=== PATIENT | male | born 1945 | race Caucasian/White ===

== ENCOUNTER 2019-12-05 12:12 | Emergency (ER) | payer OTHER ==
[~2019-12-05] VITALS: Ht 175.3 cm; Wt 68.0 kg
[2019-12-05 12:16] VITALS: BP 177/94
--- NOTE | 2019-12-05 12:26 | NUR ---
74 Y/O MALE BIBA BLS C/O RT HIP PAIN S/P FALL LAST NIGHT. PT STATES GROUND LEVEL FALL, FELL WHEN TRYING TO GET UP. DENIES LOC/HEAD INJURY. UNABLE TO AMBULATE/MOVE RT LOWER EXTREMITY DUE TO PAIN. 10/10 SHARP PAIN STARTING AT RT HIP RADIATING DOWN RT LEG TOWARD FOOT. CAP REFILL <2 SEC PT LAYING IN BED POSITIONED FOR COMFORT. X 2 SIDE RAILS RAISED. BED LOCKED AND IN LOW POSITION. VSS, AT BEDSIDE
--- NOTE | 2019-12-05 12:48 | NUR ---
DR IRIZARRY AT BEDSIDE EXAMINING PT
--- NOTE | 2019-12-05 12:59 | NUR ---
PT GIVEN URINAL FOR URINE COLLECTION.
--- NOTE | 2019-12-05 13:05 | NUR ---
PT TO CT VIA [facility]
--- NOTE | 2019-12-05 13:24 | NUR ---
RETURN FROM CT.
[2019-12-05 13:44] LABS: APPEARANCE,URINE SL CLOUDY (CLEAR); BILIRUBIN,URINE NEGATIVE (NEGATIVE); BLOOD, URINE TRACE-I (NEGATIVE); COLOR,URINE AMBER (YELLOW); LEUKOCYTE ESTERASE ,URINE TRACE (NEGATIVE); NITRITE, URINE NEGATIVE (NEGATIVE); PH,URINE 5.5 (5.0-9.0); UGLUCOSE NEGATIVE (NEGATIVE)
[2019-12-05 13:45] LABS: BASOPHILS # (AUTO) 0.1 K/uL (0.00-0.22); BASOPHILS % (AUTO) 0.9 % (0.0-2.0); HEMATOCRIT 44.1 % (36-52); HEMOGLOBIN 14.6 g/dL (12.0-18.0); LYMPHOCYTES # (AUTO) 1.1 K/uL (2.0-11.5); LYMPHOCYTES % (AUTO) 8.4 % (20.5-51.1); MEAN CORPUSCULAR HEMOGLOBIN 33 pg (27-31); MEAN CORPUSCULAR HGB CONC 33 g/dL (33-37); MEAN CORPUSCULAR VOLUME 100.6 fL (80-94); MONOCYTES # (AUTO) 0.9 K/uL (0.8-1.0); MONOCYTES % (AUTO) 6.7 % (1.7-9.3); PLATELET COUNT (AUTO) 340 K/uL (140-450); RED BLOOD CELL COUNT(AUTO) 4.38 MIL/uL (4.20-6.10); RED CELL DISTRIBUTION WIDTH 14.4 % (11.6-13.7); WHITE BLOOD COUNT (AUTO) 13.1 K/uL (4.8-10.8)
[2019-12-05 14:03] LABS: PROTHROMBIN TIME 9.9 secs (10.8-13.4)
[2019-12-05 14:07] LABS: HYALINE CASTS, URINE 0-10 /LPF (None Seen); RBC,URINE 0-5 /HPF (0-5); WBC,URINE 0-5 /HPF (0-5)
[2019-12-05 14:27] LABS: ALBUMIN 3.7 g/dL (3.4-5.0); ANION GAP 18.7 (8-16); ASPARTATE AMINOTRANSFERASE 38 U/L (15-37); CARBON DIOXIDE 25.2 mmol/L (21-32); CHLORIDE 107 mmol/L (98-107); CREATININE 0.7 mg/dL (0.6-1.3); GLUCOSE 111 mg/dL (74-106); POTASSIUM 3.9 mmol/L (3.5-5.1); SODIUM SERUM 147 mmol/L (136-145); TOTAL BILIRUBIN 0.7 mg/dL (0.0-1.0); UREA NITROGEN, BLOOD 24 mg/dL (7-18)
--- NOTE | 2019-12-05 14:35 | NUR ---
LAYING IN BED POSITIONED FOR COMFORT. RR EVEN AND UNLABORED. AT BEDSIDE. WILL CONTINUE TO MONITOR
[2019-12-05] MEDS ORDERED: LEVE750T25 PO (15:12)
[2019-12-05] MEDS ORDERED: MEMA10TA56 PO (15:12)
[2019-12-05] MEDS ORDERED: ALBU0.0912 IH (15:12)
[2019-12-05] MEDS ORDERED: METF500T2 PO (15:12)
[2019-12-05] MEDS ORDERED: LISI-420 PO (15:12)
[2019-12-05] MEDS ORDERED: MONT10TA35 PO (15:12)
[2019-12-05] MEDS ORDERED: TAMS0.4C96 PO (15:12)
[2019-12-05] MEDS ORDERED: DONE10TA10 PO (15:12)
[2019-12-05] MEDS ORDERED: ATOR40TA PO (15:12)
[2019-12-05] MEDS ORDERED: MORPHINE SULFATE 4 MG/ML SYR ONE (15:20)
[2019-12-05] MEDS ORDERED: ONDANSETRON 4 MG/2 ML VIAL ONE (15:21)
--- NOTE | 2019-12-05 15:37 | NUR ---
pain 8/10-IVP pain meds given-nadr at this time. post pain meds pain now at a 2/10.
[2019-12-05] MEDS ORDERED: MORPHINE SULFATE 4 MG/ML SYR IVP ONE ×2 (15:40→19:40)
[2019-12-05] MEDS ORDERED: ONDANSETRON 4 MG/2 ML VIAL IVP ONE (15:40)
--- NOTE | 2019-12-05 16:49 | NUR ---
LAYING IN BED WITH EYES CLOSED, VISIBLE RISE AND FALL OF THE CHEST. WILL CONTINUE TO MONITOR.
--- NOTE | 2019-12-05 18:45 | NUR ---
LAYING FLAT ON BACK, EYE OPEN, RR EVEN AND UNLABORED. STATES MILD PAIN, BUT TOLERABLE. VSS. WILL CONTINUE TO MONITOR
--- NOTE | 2019-12-05 19:05 | NUR ---
REPORT GIVEN TO KWABENA CODY. TRANSFER OF CARE AT THIS TIME.
--- NOTE | 2019-12-05 19:08 | NUR ---
received report from ramesh fischer. will cont. care at this time.
--- NOTE | 2019-12-05 19:15 | NUR ---
EAN () CONTACT INFO: HOME: [phone] AND CELL: [phone]
--- NOTE | 2019-12-05 20:23 | NUR ---
pmh: asthma, htn, sz, hyperlipidemia, cva x2
--- NOTE | 2019-12-05 20:44 | NUR ---
still waiting on [facility] for a bed to be available and to give report to the nurse. will follow up with shmuel about pt status on room avalability.
--- NOTE | 2019-12-05 21:43 | NUR ---
called [facility] and gave report to ramesh juarez. pt will go to bed [id number] tele.
--- NOTE | 2019-12-05 22:01 | NUR ---
transporation arrived to transfer pt to [facility].
--- NOTE | 2019-12-05 22:02 | NUR ---
Patient to be transferred to [facility]. Is being transferred due to higher level of care. Receiving facility has accepting physician and available space. ER physician has signed transfer form. Patient or responsible green party has agreed to transfer and signed form. Patient belongings inventoried and will be sent with patient. Copy of nursing notes, lab reports, EKG, Physicians Orders and X-rays to be sent with patient. Report called to ramesh juarez at receiving facility. [facility] has been called for transfer. ETA is 30min.
[2019-12-05 22:03] VITALS: BP 175/80
== END 2019-12-05 22:03 | disposition short-term general hospital (02) ==
LOC: MED 12:12
DX: S72.091A Other fracture of head and neck of right femur, initial encounter for closed fracture (principal); R55 Syncope and collapse; I10 Essential (primary) hypertension; E78.5 Hyperlipidemia, unspecified; Z86.73 Personal history of transient ischemic attack (TIA), and cerebral infarction without residual deficits; Z79.899 Other long term (current) drug therapy; W01.0XXA Fall on same level from slipping, tripping and stumbling without subsequent striking against object, initial encounter; Y93.89 Activity, other specified; Y92.89 Other specified places as the place of occurrence of the external cause; Y99.8 Other external cause status
CPT/HCPCS: 36415; 70450; 72192; 73502; 80053; 81001; 85025; 85610; 93005; 96374; 96375; 96376; 99285; J2270; J2405; Q0092